=== PATIENT | male | born 1945 | race Two or more races ===

== ENCOUNTER 2020-05-18 09:13 | Day surgery (SDC) | payer OTHER ==
[2020-05-18] MEDS ORDERED: CYMBALTA30 MG PO (16:53)
[2020-05-18] MEDS ORDERED: PERCOCET 5-3251 EACH PO (16:54)
== END 2020-05-18 20:30 | disposition home or self-care (01) ==
LOC: CIR.AMB 09:13
PROVIDERS: ATTEND Surgery
DX: N52.35 Erectile dysfunction following radiation therapy (principal)
CPT/HCPCS: 54405; C1813

== ENCOUNTER → 2021-03-08 | Outpatient (CLI) | payer OTHER ==
[~2021-03-08] MED LIST: CYMBALTA30 MG PO; PERCOCET 5-3251 EACH PO
== END | disposition home or self-care (01) ==
LOC: RX STUDY 09:15
PROVIDERS: ATTEND Surgery
DX: T83.091A Other mechanical complication of indwelling urethral catheter, initial encounter (principal); Y65.8 Other specified misadventures during surgical and medical care; Y92.238 Other place in hospital as the place of occurrence of the external cause
CPT/HCPCS: 51600; 74178; 74430; Q9958

== ENCOUNTER 2022-03-28 06:35 | Day surgery (SDC) | payer OTHER ==
[~2022-03-28] VITALS: Ht 172.7 cm; Wt 76.2 kg
[2022-03-28] MEDS ORDERED: PERCOCET 5-3251 EACH PO (11:09)
[2022-03-28] MEDS ORDERED: FLUCONAZOLE100 MG PO (11:10)
== END 2022-03-28 14:30 | disposition home or self-care (01) ==
LOC: CIR.AMB 06:35
PROVIDERS: ATTEND Surgery
DX: T83.410S Breakdown (mechanical) of implanted penile prosthesis, sequela (principal); Z20.822 Contact with and (suspected) exposure to COVID-19; F17.200 Nicotine dependence, unspecified, uncomplicated; Z85.46 Personal history of malignant neoplasm of prostate
CPT/HCPCS: 54410; C1813